=== PATIENT | female | born 1970 | race Caucasian/White ===

== ENCOUNTER 2019-05-22 19:33 | Emergency (ER) | payer SELFPAY ==
[~2019-05-22] VITALS: Ht 149.9 cm; Wt 61.7 kg
[2019-05-22 19:35] VITALS: BP 161/104
--- NOTE | 2019-05-22 19:39 | NUR ---
PATIENT AMBULATED TO BED 11.
--- NOTE | 2019-05-22 19:41 | NUR ---
WAN ELLIOTT EVALUATING PT AT BEDSIDE.
[2019-05-22] MEDS ORDERED: LIDOCAINE MPF 1% 0 ML ONE (19:44)
[2019-05-22] MEDS ORDERED: LIDOCAINE 2% 1000 MG/50 ML VIAL INJ ONE (19:45)
[2019-05-22] MEDS ORDERED: ACETAMINOPHEN EXTRA STRENGTH 500 MG TAB PO ONE (19:45)
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
--- NOTE | 2019-05-22 19:56 | NUR ---
EARL WRIGHT PERFORMING LAC REPAIR AT BEDSIDE.
--- NOTE | 2019-05-22 20:36 | NUR ---
A NON ADHERENT GAUZE PLACED TO COVER WOUND AND A ROLL GAUZE TO WRAP. FINGER SPLINT PLACED TO IMOBOLIZE 2ND FINGER.
[2019-05-22 20:40] VITALS: BP 127/35
== END 2019-05-22 20:40 | disposition home or self-care (01) ==
LOC: MED 19:33
DX: S61.211A Laceration without foreign body of left index finger without damage to nail, initial encounter (principal); W26.0XXA Contact with knife, initial encounter; Y93.89 Activity, other specified; Y92.89 Other specified places as the place of occurrence of the external cause; Y99.8 Other external cause status
CPT/HCPCS: 12002; 90471; 90715; 99283; J2001